=== PATIENT | male | born 1960 | race African-American/Black ===

== ENCOUNTER 2021-06-26 16:14 | Emergency (ER) | payer MEDICARE ==
[~2021-06-26] VITALS: Ht 177.8 cm; Wt 94.0 kg
[2021-06-26] MEDS ORDERED: SODIUM CHLORIDE 0.9% 1,000 ML IV ONE ×2 (18:15→19:15)
[2021-06-26 18:34] LABS: HEMATOCRIT. 36.1 % (42.0-52.0); HEMOGLOBIN. 11.4 g/dL (14.0-18.0); MEAN CORPUSCULAR HEMOGLOBIN 26.9 pg (28.0-32.0); MEAN CORPUSCULAR VOLUME 84.9 fL (80.0-94.0); MEAN PLATELET VOLUME 9.7 fl (7.4-10.4); PLATELET 188 x1000/uL (130-400); RED BLOOD CELL COUNT 4.25 mill/uL (4.7-6.1); RED CELL DISTRIBUTION WIDTH 15.4 % (11.6-14.6)
[2021-06-26 18:36] LABS: CHLORIDE 110 mEq/L (98-107)
[2021-06-26 19:48] LABS: PLATELET ESTIMATE NORMAL
[2021-06-26 20:46] VITALS: BP 101/61
== END 2021-06-26 20:48 | disposition home or self-care (01) ==
LOC: ER 16:14
DX: E11.649 Type 2 diabetes mellitus with hypoglycemia without coma (principal); Z79.4 Long term (current) use of insulin; I10 Essential (primary) hypertension
CPT/HCPCS: 36415; 71045; 80053; 82962; 83605; 84484; 85025; 96360; 99284; J7030

== ENCOUNTER 2021-11-09 14:27 | Inpatient (IN) | payer BC, OTHER ==
[~2021-11-09] VITALS: Ht 330.2 cm; Wt 90.7 kg
[2021-11-09 15:00] LABS: BASOPHILS % 0.4 % (0.0-2.0); EOSINOPHILS % 1.4 % (0.0-5.0); HEMATOCRIT. 40.8 % (42.0-52.0); HEMOGLOBIN. 13.1 g/dL (14.0-18.0); LYMPHOCYTES % 49.8 % (20.0-50.0); MEAN CORPUSCULAR HEMOGLOBIN 27.3 pg (28.0-32.0); MEAN CORPUSCULAR VOLUME 85.4 fL (80.0-94.0); MEAN PLATELET VOLUME 9.6 fl (7.4-10.4); MONOCYTES % 3.6 % (2.0-8.0); NEUTROPHILS % 44.8 % (40.0-76.0); PLATELET 283 x1000/uL (130-400); RED BLOOD CELL COUNT 4.78 mill/uL (4.7-6.1); RED CELL DISTRIBUTION WIDTH 14.1 % (11.6-14.6)
[2021-11-09] MEDS ORDERED: SODIUM CHLORIDE 0.9% 1000ML BAG (SEPSIS BOLUS) IV ONE (15:00)
[2021-11-09 15:07] LABS: CHLORIDE 102 mEq/L (98-107)
[2021-11-09 15:10] LABS: INR 0.9; PROTHROMBIN TIME 9.9 sec (9.6-11.0)
[2021-11-09] MEDS ORDERED: INSULIN REGULAR (HUMULIN R) 300UNITS/3ML VIAL SUBCUT NR (16:00)
[2021-11-09] MEDS ORDERED: VANCOMYCIN 1G PREMIX 200 ML IV NR (16:00)
[2021-11-09] MEDS ORDERED: PIPERACILLIN/TAZ 3.375G PREMIX 50 ML IV NR (16:00)
[2021-11-09] MEDS: VANCOMYCIN 1GM PMX (XELLIA) 200 ML IV NR ×2 (17:30→18:58)
[2021-11-09 18:15] LABS: CLARITY URINE CLOUDY (CLEAR); COLOR URINE DARK YELLOW (YELLOW); KETONES URINE TRACE (NEGATIVE); LEUKOCYTE ESTERASE URINE TRACE (NEGATIVE); NITRITE URINE NEGATIVE (NEGATIVE); OCCULT BLOOD URINE NEGATIVE (NEGATIVE); PROTEIN URINE 2+ (NEGATIVE); SPECIFIC GRAVITY URINE 1.025 (1.005-1.030)
[2021-11-09 18:28] LABS: *AMPHETAMINES SCREEN URINE NEGATIVE (NEGATIVE); *BARBITURATES SCREEN URINE NEGATIVE (NEGATIVE); *BENZODIAZEPINES SCREEN URINE NEGATIVE (NEGATIVE)
[2021-11-09 18:29] LABS: *COCAINE SCREEN URINE NEGATIVE (NEGATIVE); CANNABINOID URINE SCREEN NEGATIVE (NEGATIVE); METHADONE URINE SCREEN NEGATIVE (NEGATIVE); OPIATES URINE SCREEN NEGATIVE (NEGATIVE); PHENCYCLIDINE URINE SCREEN NEGATIVE (NEGATIVE)
[2021-11-09] MEDS ORDERED: INSULIN LISPRO 100 UNITS/ML SUBCUT NR (21:15)
[2021-11-10 01:03] VITALS: BP 133/78
[2021-11-10 02:00] VITALS: BP 131/77
[2021-11-10 08:00] VITALS: BP 125/75
[2021-11-10] MEDS ORDERED: ONDANSETRON HCL 4MG/2ML INJ IV PRN (11:30)
[2021-11-10] MEDS ORDERED: LORAZEPAM 2MG/ML CPJ IV PRN (11:30)
[2021-11-10] MEDS ORDERED: DEXTROSE 50% WATER 50ML SYRINGE IV PRN (11:30)
[2021-11-10] MEDS ORDERED: ACETAMINOPHEN 325MG TABLET PO PRN (11:30)
[2021-11-10 12:00] VITALS: BP 131/80
[2021-11-10] MEDS: BLOOD SUGAR DIAGNOSTIC STRIP TEST SCH ×3 (12:20→21:17)
[2021-11-10] MEDS: INSULIN LISPRO 100 UNITS/ML SUBCUT SCH ×3 (13:08→21:48)
[2021-11-10] MEDS ORDERED: SITA1TAB6 MT (14:57)
[2021-11-10] MEDS ORDERED: LOPHC2 MT (14:57)
[2021-11-10] MEDS ORDERED: GABA-532 MT (14:57)
[2021-11-10] MEDS: SODIUM CHLORIDE 0.45% 1,000 ML IV SCH (15:19)
[2021-11-10 16:00] VITALS: BP 136/76
[2021-11-10 20:00] VITALS: BP 140/85
[2021-11-10] MEDS: INSULIN GLARGINE 100 UNITS/ML SUBCUT SCH (21:49)
[2021-11-11] VITALS: BP 146/85
[2021-11-11] MEDS: SODIUM CHLORIDE 0.45% 1,000 ML IV SCH (01:03)
[2021-11-11 04:00] VITALS: BP 143/79
[2021-11-11] MEDS: BLOOD SUGAR DIAGNOSTIC STRIP TEST SCH ×2 (06:32→11:51)
[2021-11-11 07:53] VITALS: BP 140/76
[2021-11-11] MEDS: INSULIN LISPRO 100 UNITS/ML SUBCUT SCH ×2 (08:15→12:57)
[2021-11-11] MEDS ORDERED: THIAMINE HCL 100MG TABLET PO SCH (09:00)
[2021-11-11] MEDS: INSULIN GLARGINE 100 UNITS/ML SUBCUT SCH (09:59)
[2021-11-11 12:00] VITALS: BP 138/74
[2021-11-11] MEDS ORDERED: GLIP5TAB12 MT ×2 (12:27)
[2021-11-11 12:42] VITALS: BP 139/72
[2021-11-12] MEDS ORDERED: INSU100I28 SQ (10:17)
== END 2021-11-11 15:15 | disposition home or self-care (01) | DRG 683 ==
LOC: ER 14:46 → 6WST 16:30 → EDBEDREQTM 16:39 → EDBEDREQ 16:39 → EDBEDREQSVC 16:39 → ENRESERV 21:38
PROVIDERS: ADMIT Internal Medicine; ATTEND Internal Medicine
DX: N17.9 Acute kidney failure, unspecified (principal); E44.1 Mild protein-calorie malnutrition; Z68.1 Body mass index [BMI] 19.9 or less, adult; E11.65 Type 2 diabetes mellitus with hyperglycemia; E87.6 Hypokalemia; E11.22 Type 2 diabetes mellitus with diabetic chronic kidney disease; E66.9 Obesity, unspecified; F10.10 Alcohol abuse, uncomplicated; Y90.9 Presence of alcohol in blood, level not specified; Z20.822 Contact with and (suspected) exposure to COVID-19; I12.9 Hypertensive chronic kidney disease with stage 1 through stage 4 chronic kidney disease, or unspecified chronic kidney disease; Z82.49 Family history of ischemic heart disease and other diseases of the circulatory system; Z83.3 Family history of diabetes mellitus; Z78.9 Other specified health status; I95.9 Hypotension, unspecified; Z71.3 Dietary counseling and surveillance; N18.30 Chronic kidney disease, stage 3 unspecified; R53.1 Weakness
CPT/HCPCS: 36415; 71045; 80048; 80053; 80305; 80320; 81003; 82962; 83036; 83605; 83880; 84145; 84484; 85025; 87426; 93005; 99285; J1815; J2543; J3370; J7030; G0480